=== PATIENT | male | born 1980 | race Caucasian/White ===

== ENCOUNTER 2017-09-19 23:01 | Emergency (ER) | payer SELFPAY ==
[~2017-09-19] VITALS: Ht 162.6 cm; Wt 53.3 kg
[2017-09-19 23:22] VITALS: BP 124/78
--- NOTE | 2017-09-20 00:16 | PHYS DOC ---
Adult General Chief Complaint Chief Complaint: HALLUCINATIONS AUDIBLE/VISUAL HPI HPI Patient is a 37 year old male who presents with complaint of paranoid thoughts and hallucinations. Patient has history of paranoid schizophrenia and bipolar disorder. Patient is currently stating at [facility] as he was recently incarcerated and released. Patient has been evaluated at the [facility] and was recommended to start on risperidone and gabapentin therapy. Patient has not been started on this medication as of yet but is supposed to go to the pharmacy to have this filled tomorrow. The patient denies any suicidal or homicidal ideation. The patient states he is having paranoid thoughts well at [facility] and states he does not trust anyone there. The patient states that he had been seeing blue dots in his left eye which caused him to punch himself in that eye at approximately 1500 today. Patient denies suicidal or homicidal ideation. The patient states that the emergency department feels like a safe place at this time and that he feels like he just needs to be "away for a little bit" so that he can calm down. Patient does not feel he needs to be admitted to a psychiatric facility. Review of Systems Review of Systems Constitutional: Denies fever or chills [] Eyes: Left eye redness and pain[] HENT: Denies nasal congestion or sore throat [] Respiratory: Denies cough or shortness of breath [] Cardiovascular: Denies chest pain or edema[] GI: Denies abdominal pain, nausea, vomiting, bloody stools or diarrhea [] : Denies dysuria or hematuria [] Musculoskeletal: Denies back pain or joint pain [] Integument: Denies rash or skin lesions [] Neurologic: Denies headache, focal weakness or sensory changes [] All other systems were reviewed and found to be within normal limits, except as documented in this note. Allergies Allergies Allergies Coded Allergies Type Severity Reaction Last Updated Verified Unable to Assess 09/20/17 No Physical Exam Physical Exam Constitutional: Alert, cooperative, afebrile, no acute distress. [] HENT: Normocephalic, atraumatic, bilateral external ears normal, oropharynx moist, no oral exudates, nose normal. [] Eyes: PERRLA, EOMI, left periorbital ecchymosis, left conjunctiva inflamed, left scleral injection, no discharge. [] Neck: Normal range of motion, no tenderness, supple, no stridor. [] Cardiovascular:Heart rate regular rhythm, no murmur [] Lungs & Thorax: Bilateral breath sounds clear to auscultation [] Abdomen: Bowel sounds normal, soft, no tenderness, no masses, no pulsatile masses. [] Skin: Warm, dry, no erythema, no rash. [] Back: No tenderness, no CVA tenderness. [] Extremities: No tenderness, no cyanosis, no clubbing, ROM intact, no edema. [] Neurologic: Alert and oriented X 3, normal motor function, normal sensory function, no focal deficits noted. [] Current Patient Data Vital Signs Vital Signs Date Time Temp Pulse Resp B/P (MAP) Pulse Ox O2 Delivery O2 Flow Rate FiO2 09/19/17 23:22 97.4 95 20 95 Room Air Lab Results Not performed EKG EKG Not performed[] Radiology/Procedures Radiology/Procedures Not performed[] Course & Med Decision Making Course & Med Decision Making Pertinent Labs and Imaging studies reviewed. (See chart for details) The patient remained cooperative in the emergency department. The patient was given a meal tray and was observed over 3 hours time. The patient is not suicidal or homicidal. The patient has been prescribed medications for treatment of schizophrenia including gabapentin and risperidone which he is supposed be able to have filled tomorrow. The patient was offered medication in the emergency department but declined. He stated that he felt safe in the emergency department and after observation the patient was willing to return back to the [facility]. Patient was given Romycin in the emergency department for treatment of conjunctivitis. Advised to continue on 5 day course and recommended return to emergency department for any worsening symptoms. Patient was understanding and agreement with treatment plan. Dragon Disclaimer Dragon Disclaimer This electronic medical record was generated, in whole or in part, using a voice recognition dictation system. Departure Departure: Impression: Primary Impression: Paranoid schizophrenia Additional Impression: Conjunctivitis Disposition: 01 HOME, SELF-CARE Condition: IMPROVED Referrals: PCP,RIZWAN (PCP) Patient Instructions: Schizophrenia Additional Instructions: Take your medications as prescribed by your psychiatrist. Return to the emergency department for any worsening symptoms. Problem Qualifiers Additional Impression: Conjunctivitis Conjunctivitis type: acute Acute conjunctivitis type: unspecified Laterality: left Qualified Codes: H10.32 - Unspecified acute conjunctivitis, left eye ALONSO MARIE MD Sep 20, 2017 00:16
[2017-09-20] MEDS ORDERED: ERYTHROMYCIN 0.5% OPHTH OINTMENT 1GM TUBE. OS ONE (00:30)
[2017-09-20] MEDS ORDERED: ERYT1OIN6 LEFTEYE (03:08)
== END 2017-09-20 02:46 | disposition home or self-care (01) ==
LOC: ER 23:01
DX: F20.0 Paranoid schizophrenia (principal); F31.9 Bipolar disorder, unspecified; H10.32 Unspecified acute conjunctivitis, left eye
CPT/HCPCS: 99284

== ENCOUNTER 2017-09-24 23:50 | Emergency (ER) | payer SELFPAY ==
[~2017-09-24] VITALS: Ht 162.6 cm; Wt 57.1 kg
[~2017-09-24 23:50] MED LIST: ERYT1OIN6 LEFTEYE
--- NOTE | 2017-09-25 00:04 | ED.ADGEN ---
Past History Past Medical History: Anxiety, Asthma, Bipolar, Depression, Schizophrenia, Other (CIRO VANCE MD) Past Surgical History: No Surgical History (CIRO VANCE MD) Smoking: Cigarettes Drug Use: Other (CIRO VANCE MD) Adult General Chief Complaint Chief Complaint ".. I having the hallucinations.. I am all really paranoid... but I am seeing stuff.... things I ve seen ... and done before... that I want to forget... I was here a week ago ... for similar shit... they asked me... if I wanted to take meds... and I said no... I don't want to be all....fog in my head.... but I started seeing arrows in my Lt. eye.. and visions in my Lt. eye... . so I started punching my self in the head... to make it stop...the CO ( executive officer ) was doing stuff to ... his phone... watch.... that was sending control signals ....to my head... and the snack machine is sending messages to my head....... I know.... I am paranoid.... I also have bad anxiety..... but... I am just out of ... [place]... I ve been down for ....10 yrs ... the max for gun possession... and 3 felony violent convictions.. ... It' s like man... I am in the Matrix... I ... don't under stand the world...." It just that... I keep getting the... hallucinations of ... violent shit... I ve seen... and done..."..." I was to take gabapentin and Risperdal... but I have not had it yet..... I don't like sedation ....from drugs.... only marijuana..."..." I am not going to fucking.. kill myself or hurt any one... I just don't want ... to be fucked with...." (ICRO VANCE MD) HPI HPI Patient is a 37 year old male who presents with above hx and complaints of confusion, hallucinations, paranoid delusions, anxiety, self injury and bouts of severe agitations. Pt. reports prior psych. admissions as child for suicide attempts and depression. Has taken meds for psychosis in past while in snf system. Prior Dx. of anxiety disorder, bipolar, schizophrenia, paranoid delusions. Pt. recently released to [facility]- at end of his 10 yr sentence. Pt. currently on gabapentin and Risperdal. Pt also using steroid cream for his eczema. Patient in just a short interview when from crying to pressured agitated speech and back again to sobbing. Pt. reportedly had + drug screen wednesday at [facility] and has become behavioral problem with staff . (CIRO VANCE MD) Review of Systems Review of Systems Complaints of Hallucinations and Delusions, Anxiety Constitutional: Denies fever or chills [] Eyes: Denies change in visual acuity, redness, or eye pain [] HENT: Denies nasal congestion or sore throat [] Respiratory: Denies cough or shortness of breath [] Cardiovascular: No additional information not addressed in HPI [] GI: Denies abdominal pain, nausea, vomiting, bloody stools or diarrhea [] : Denies dysuria or hematuria [] Musculoskeletal: Denies back pain or joint pain [] Integument: Denies rash or skin lesions [] Neurologic: Denies headache, focal weakness or sensory changes [] Endocrine: Denies polyuria or polydipsia [] All other systems were reviewed and found to be within normal limits, except as documented in this note. (CIRO VANCE MD) Family History Family History Noncontributory (CIRO VANCE MD) Current Medications Current Medications Current Medications Medications (Trade) Dose Ordered Sig/Nirmal Start Time Stop Time Status Last Admin Dose Admin Albuterol Sulfate (Ventolin Hfa) 2 puff 1X ONCE 09/25/17 06:30 09/25/17 06:31 DC 09/25/17 07:15 2 PUFF Folic Acid (FOLIC ACID SYRINGE for ER) 5 mg STK-MED ONCE 09/25/17 01:17 09/25/17 01:18 DC Gabapentin (Neurontin) 300 mg 1X ONCE 09/25/17 03:00 09/25/17 03:01 DC 09/25/17 07:29 300 MG Haloperidol Lactate (Haldol) 5 mg STK-MED ONCE 09/25/17 06:49 09/25/17 06:50 DC Lactated Ringer's 1,000 ml @ 1,000 mls/hr Q1H 09/25/17 00:27 09/25/17 01:26 DC 09/25/17 00:58 1,000 MLS/HR Lorazepam (Ativan) 2 mg STK-MED ONCE 09/25/17 06:49 09/25/17 06:50 DC Multivitamins/ Minerals 10 ml/ Folic Acid 1 mg/ Thiamine HCl 100 mg/Lactated Ringer's 1,011.1 ml @ 1,000 mls/ hr 1X ONCE 09/25/17 00:30 09/25/17 01:30 DC 09/25/17 01:35 1,000 MLS/HR Nicotine (Nicoderm Cq 21mg) 1 patch 1X ONCE 09/25/17 07:30 09/25/17 07:31 DC Risperidone (RisperDAL M) 2 mg 1X STAT 09/25/17 02:52 09/25/17 02:56 DC Risperidone (RisperDAL) 1 mg 1X ONCE 09/25/17 07:30 09/25/17 07:36 DC 09/25/17 07:30 1 MG Thiamine HCl (Thiamine Im) 200 mg STK-MED ONCE 09/25/17 01:17 09/25/17 01:18 DC Ziprasidone (Geodon) 60 mg 1X ONCE 09/25/17 07:30 09/25/17 07:31 DC (GINA TYSON MD) Current Medications See nursing for home meds (CIRO VANCE MD) Allergies Allergies Allergies Coded Allergies Type Severity Reaction Last Updated Verified Penicillins Allergy Unknown 09/25/17 Yes (GINA TYSON MD) Physical Exam Physical Exam Constitutional: Well developed, well nourished, in acute emotional distress, non-toxic appearance. [] HENT: Normocephalic, contusions to the left side of face, bilateral external ears normal, oropharynx moist, no oral exudates, nose normal. [] Eyes: PERRLA, EOMI, left sub-,conjunctiva hemorrhage,no discharge. [] Neck: Normal range of motion, no tenderness, supple, no stridor. [] Cardiovascular:Tachycardia Heart rate regular rhythm, no murmur [] Lungs & Thorax: Bilateral breath sounds equal at apex with scattered wheezes on auscultation [] Abdomen: Bowel sounds normal, soft, no tenderness, no masses, no pulsatile masses. [] Skin: Warm, dry, no erythema,. Tattoos from top head to feet. Eczema Back: No tenderness, no CVA tenderness. [] Extremities: No tenderness, no cyanosis, no clubbing, ROM intact, no edema. [] Neurologic: Alert and oriented X 3, normal motor function, normal sensory function, no focal deficits noted. [] Psychologic: Affect agitated, anxious, paranoid, judgement poor insight ,mood depressed at times crying. (CIRO VANCE MD) Current Patient Data Vital Signs Vital Signs Date Time Temp Pulse Resp B/P (MAP) Pulse Ox O2 Delivery O2 Flow Rate FiO2 09/25/17 07:59 98.6 109 16 133/83 (100) 98 09/25/17 01:35 Room Air (GINA TYSON MD) Lab Results Laboratory Tests Test 09/25/17 00:18 09/25/17 01:28 White Blood Count 8.8 x10^3/uL (4.0-11.0) Red Blood Count 4.61 x10^6/uL (4.30-5.70) Hemoglobin 14.0 g/dL (13.0-17.5) Hematocrit 41.6 % (39.0-53.0) Mean Corpuscular Volume 90 fL (79-100) Mean Corpuscular Hemoglobin 30 pg (25-35) Mean Corpuscular Hemoglobin Concent 34 g/dL (31-37) Red Cell Distribution Width 13.8 % (11.5-14.5) Platelet Count 316 x10^3/uL (140-400) Neutrophils (%) (Auto) 52 % (31-73) Lymphocytes (%) (Auto) 27 % (24-48) Monocytes (%) (Auto) 7 % (0-9) Eosinophils (%) (Auto) 12 % (0-3) H Basophils (%) (Auto) 2 % (0-3) Neutrophils # (Auto) 4.6 x10^3uL (1.8-7.7) Lymphocytes # (Auto) 2.4 x10^3/uL (1.0-4.8) Monocytes # (Auto) 0.6 x10^3/uL (0.0-1.1) Eosinophils # (Auto) 1.0 x10^3/uL (0.0-0.7) H Basophils # (Auto) 0.2 x10^3/uL (0.0-0.2) Sodium Level 141 mmol/L (136-145) Potassium Level 3.7 mmol/L (3.5-5.1) Chloride Level 103 mmol/L (98-107) Carbon Dioxide Level 29 mmol/L (21-32) Anion Gap 9 (6-14) Blood Urea Nitrogen 8 mg/dL (8-26) Creatinine 0.9 mg/dL (0.7-1.3) Estimated GFR (Cockcroft-Gault) 96.0 Glucose Level 109 mg/dL (70-99) H Calcium Level 8.2 mg/dL (8.5-10.1) L Magnesium Level 2.2 mg/dL (1.8-2.4) Total Bilirubin 0.1 mg/dL (0.2-1.0) L Direct Bilirubin 0.1 mg/dL (0.0-0.2) Aspartate Amino Transferase (AST) 18 U/L (15-37) Alanine Aminotransferase (ALT) 38 U/L (16-63) Alkaline Phosphatase 92 U/L (46-116) Total Protein 7.0 g/dL (6.4-8.2) Albumin 3.4 g/dL (3.4-5.0) Thyroid Stimulating Hormone (TSH) 0.860 uIU/mL (0.358-3.740) Ethyl Alcohol Level < 10 mg/dL (0-10) Urine Collection Type Unknown Urine Color Straw Urine Clarity Clear Urine pH 6.0 Urine Specific [place] 1.010 Urine Protein Neg (NEG-TRACE) Urine Glucose (UA) Neg mg/dL (NEG) Urine Ketones (Stick) Neg mg/dL (NEG) Urine Blood Neg (NEG) Urine Nitrite Neg (NEG) Urine Bilirubin Neg (NEG) Urine Urobilinogen Dipstick 0.2 mg/dL (0.2 mg/dL) Urine Leukocyte Esterase Neg (NEG) Urine RBC Rare /HPF (0-2) Urine WBC Rare /HPF (0-4) Urine Squamous Epithelial Cells None /LPF Urine Bacteria 0 /HPF (0-FEW) Urine Opiates Screen Neg (NEG) Urine Methadone Screen Neg (NEG) Urine Barbiturates Neg (NEG) Urine Phencyclidine Screen Neg (NEG) Urine Amphetamine/Methamphetamine Neg (NEG) Urine Benzodiazepines Screen Neg (NEG) Urine Cocaine Screen Neg (NEG) Urine Cannabinoids Screen Neg (NEG) Urine Ethyl Alcohol Neg (NEG) (GINA TYSON MD) Lab Results Laboratory Tests Test 09/25/17 00:18 09/25/17 01:28 White Blood Count 8.8 x10^3/uL (4.0-11.0) Red Blood Count 4.61 x10^6/uL (4.30-5.70) Hemoglobin 14.0 g/dL (13.0-17.5) Hematocrit 41.6 % (39.0-53.0) Mean Corpuscular Volume 90 fL (79-100) Mean Corpuscular Hemoglobin 30 pg (25-35) Mean Corpuscular Hemoglobin Concent 34 g/dL (31-37) Red Cell Distribution Width 13.8 % (11.5-14.5) Platelet Count 316 x10^3/uL (140-400) Neutrophils (%) (Auto) 52 % (31-73) Lymphocytes (%) (Auto) 27 % (24-48) Monocytes (%) (Auto) 7 % (0-9) Eosinophils (%) (Auto) 12 % (0-3) H Basophils (%) (Auto) 2 % (0-3) Neutrophils # (Auto) 4.6 x10^3uL (1.8-7.7) Lymphocytes # (Auto) 2.4 x10^3/uL (1.0-4.8) Monocytes # (Auto) 0.6 x10^3/uL (0.0-1.1) Eosinophils # (Auto) 1.0 x10^3/uL (0.0-0.7) H Basophils # (Auto) 0.2 x10^3/uL (0.0-0.2) Sodium Level 141 mmol/L (136-145) Potassium Level 3.7 mmol/L (3.5-5.1) Chloride Level 103 mmol/L (98-107) Carbon Dioxide Level 29 mmol/L (21-32) Anion Gap 9 (6-14) Blood Urea Nitrogen 8 mg/dL (8-26) Creatinine 0.9 mg/dL (0.7-1.3) Estimated GFR (Cockcroft-Gault) 96.0 Glucose Level 109 mg/dL (70-99) H Calcium Level 8.2 mg/dL (8.5-10.1) L Magnesium Level 2.2 mg/dL (1.8-2.4) Total Bilirubin 0.1 mg/dL (0.2-1.0) L Direct Bilirubin 0.1 mg/dL (0.0-0.2) Aspartate Amino Transferase (AST) 18 U/L (15-37) Alanine Aminotransferase (ALT) 38 U/L (16-63) Alkaline Phosphatase 92 U/L (46-116) Total Protein 7.0 g/dL (6.4-8.2) Albumin 3.4 g/dL (3.4-5.0) Thyroid Stimulating Hormone (TSH) 0.860 uIU/mL (0.358-3.740) Ethyl Alcohol Level < 10 mg/dL (0-10) Urine Collection Type Unknown Urine Color Straw Urine Clarity Clear Urine pH 6.0 Urine Specific [place] 1.010 Urine Protein Neg (NEG-TRACE) Urine Glucose (UA) Neg mg/dL (NEG) Urine Ketones (Stick) Neg mg/dL (NEG) Urine Blood Neg (NEG) Urine Nitrite Neg (NEG) Urine Bilirubin Neg (NEG) Urine Urobilinogen Dipstick 0.2 mg/dL (0.2 mg/dL) Urine Leukocyte Esterase Neg (NEG) Urine RBC Rare /HPF (0-2) Urine WBC Rare /HPF (0-4) Urine Squamous Epithelial Cells None /LPF Urine Bacteria 0 /HPF (0-FEW) Urine Opiates Screen Neg (NEG) Urine Methadone Screen Neg (NEG) Urine Barbiturates Neg (NEG) Urine Phencyclidine Screen Neg (NEG) Urine Amphetamine/Methamphetamine Neg (NEG) Urine Benzodiazepines Screen Neg (NEG) Urine Cocaine Screen Neg (NEG) Urine Cannabinoids Screen Neg (NEG) Urine Ethyl Alcohol Neg (NEG) (CIRO VANCE MD) EKG EKG I interpretation of EKG shows a sinus rhythm at 91 bpm. No acute cardiopulmonary changes. No findings acute STEMI of contralateral changes.[] (CIRO VANCE MD) Radiology/Procedures Radiology/Procedures My interpretation of chest x-ray shows no cardiopulmonary findings My interpretation of CT head shows no acute shift, mass, edema, bleed, or fracture.[] (CIRO VANCE MD) Course & Med Decision Making Course & Med Decision Making Pertinent Labs and Imaging studies reviewed. (See chart for details) [facility] by [facility]- via computer. Recommendation for in hospital psych . tx. and evaluation. [facility] attempting placement. Pt. currently refusing medications. Did accept IV fluids. Denies suicidal or homicidal ideations. Pt. resting, got up to go to bathroom. 0200 Pt. resting comfortable- 0300 Pt. sleeping - 0400 Pt. watching TV- 0500, Still awaiting [facility] placement. Pt. now requesting different nurses to take care of him, states he dose not want any " Sneaky ass nurses" 0600 . Check out to shift change Dr. Tyson - he will make final disposition. Pt. still here on my return for next shift. Pt. awaiting placement at [facility]. Pt. currently resting and occasionally watching TV. - 1800 Shift change Pt. still in room comfortable- occasionally sleeping 1900 to 2300 Pt. becoming more agitated again. 2330. Hrs. [facility] advised they will not consider accepting pt again until 0500 Am. [facility] advised that he has been removed from the count. Call placed to Director- Mr. Martinez [phone]. Advised he was not under their custody any more. Call placed to Tarun Burton [phone], pt. reported information assurance officer. No call back as of 0500. Pt. checked out at shift change- awaiting placement at [facility]. [] (CIRO VANCE MD) Course & Med Decision Making ARNIE S/O FROM [facility] 6 AM AWAITING PSYCH PLACEMENT. 630 AM PT BECAME QUITE AGITATED THREATENING TO STAFF, CLENCHING FISTS POINTING AT SPECIFIC MEMBERS OF STAFF SUCH MYSELF. POLICE WERE CONTACTED DUE TO CONCERN THAT WE STAFF WOULD NOT HAVE CAPACITY TO TAKEDOWN OR SEDATE THIS PATIENT SAFELY. PT DID ULTIMATELY AGREE TO GET INTO THE [facility]OPSITAL PANTS AND COMPLY WITH THE SUICIDE PRECAUTIONS. HE SLEPT THROUGHOUT THE REMAINDER OF THE SHIFT OF THIS WRITING AT 330 PM. I CHECKED ON HIM MULTIPLE TIMES AND HE WAS RESTING COMFORTABLY. HE IS NUMBER [phone] ON THE L[facility] AT [facility]. (GINA TYSON MD) Final Impression Final Impression 1. Delusions 2. Paranoid 3. Anxiety 4. Agitation 5. Tobacco Use/ Hx. Polysubstance Abuse 6. Self Injury[] 7. Hx. Bipolar 8. Hx. of Schizophrenia 9. Acute Psychosis / on Chronic 10.Suicidal and homicidal ideations 11. Eczema 12. Asthma (CIRO VANCE MD) Dragon Disclaimer Dragon Disclaimer This electronic medical record was generated, in whole or in part, using a voice recognition dictation system. (CIRO VANCE MD) CIRO VANCE MD Sep 25, 2017 00:04 GINA TYSON MD Sep 25, 2017 15:33
[2017-09-25] MEDS ORDERED: IV RINGERS SOLUTION,LACTATED 1,000 ML IV SCH (00:27)
[2017-09-25] MEDS ORDERED: MVI, ADULT NO.4 WITH VIT K 10 ML, FOLIC ACID SYRINGE for ER 1 MG, THIAMINE 100 MG in IV... IV ONE ×4 (00:30)
[2017-09-25 00:56] LABS: ALBUMIN 3.4 g/dL (3.4-5.0); CALCIUM 8.2 mg/dL (8.5-10.1); CREATININE 0.9 mg/dL (0.7-1.3); DIRECT BILIRUBIN 0.1 mg/dL (0.0-0.2); MAGNESIUM 2.2 mg/dL (1.8-2.4); POTASSIUM 3.7 mmol/L (3.5-5.1); TOTAL BILIRUBIN 0.1 mg/dL (0.2-1.0)
[2017-09-25] MEDS ORDERED: THIAMINE IM 200 MG/2 ML VIAL. IM ONE (01:17)
[2017-09-25] MEDS ORDERED: FOLIC ACID 5 MG/ML SYRINGE for ER IV ONE (01:17)
--- NOTE | 2017-09-25 01:25 | RAD ---
Indication: Hallucination mid self-imposed trauma. TECHNIQUE: CT head without IV contrast COMPARISON: None FINDINGS: No pathologic extra-axial or intra-axial fluid collection. The ventricles and basal cisterns are within normal limits. No acute intracranial bleed. The plascencia-white differentiation is preserved. Visualized orbits within normal limits. No calvarial fractures. Visualized paranasal sinuses and mastoid air cells are clear. IMPRESSION: No acute intracranial process on this noncontrast CT. Electronically signed by: Matthew Melo DO (09/25/2017 1:22 AM) [facility]
[2017-09-25 01:48] LABS: BASO # 0.2 x10^3/uL (0.0-0.2); BASO % 2 % (0-3); EOS % 12 % (0-3); HEMATOCRIT 41.6 % (39.0-53.0); LYMPH # 2.4 x10^3/uL (1.0-4.8); LYMPH % 27 % (24-48); MEAN CORPUSCULAR HEMOGLOBIN 30 pg (25-35); MEAN CORPUSCULAR HGB CONC 34 g/dL (31-37); MEAN CORPUSCULAR VOLUME 90 fL (79-100); MONO # 0.6 x10^3/uL (0.0-1.1); MONO % 7 % (0-9); NEUT # 4.6 x10^3uL (1.8-7.7); NEUT % 52 % (31-73); PLATELET COUNT 316 x10^3/uL (140-400); RED BLOOD COUNT 4.61 x10^6/uL (4.30-5.70); RED CELL DISTRIBUTION WIDTH 13.8 % (11.5-14.5); WHITE BLOOD COUNT 8.8 x10^3/uL (4.0-11.0)
[2017-09-25 01:48] LABS: BARBITURATES NEG (NEG); BENZODIAZEPINES NEG (NEG); CANNABINOIDS NEG (NEG); COCAINE NEG (NEG); METHADONE NEG (NEG); OPIATES NEG (NEG); PHENCYCLIDINE NEG (NEG)
[2017-09-25 01:50] LABS: BACTERIA,URINE 0 /HPF (0-FEW); BILIRUBIN,URINE NEG (NEG); CLARITY,URINE CLEAR; COLOR,URINE STRAW; GLUCOSE,URINE NEG (NEG); NITRITE,URINE NEG (NEG); RBC,URINE RARE /HPF (0-2); UROBILINOGEN,URINE 0.2 mg/dL (0.2 mg/dL)
[2017-09-25 01:51] LABS: WBC,URINE RARE /HPF (0-4)
[2017-09-25 01:57] LABS: AMPHETAMINE/METHAMPHETAMINE NEG (NEG)
[2017-09-25] MEDS ORDERED: risperiDONE ODT 1 MG TAB.RAPDIS. PO STA ×2 (02:52→23:35)
[2017-09-25] MEDS ORDERED: GABAPENTIN 100 MG CAPSULE. PO ONE ×2 (03:00→23:45)
--- NOTE | 2017-09-25 03:02 | RAD ---
PROCEDURE: CHEST AP ONLY CLINICAL INDICATION: Cough. Hx asthma COMPARISON: None FINDINGS: No pneumothorax identified. Cardiac and mediastinal contours unremarkable. No pulmonary consolidation or acute airspace disease. No acute osseous abnormalities identified. IMPRESSION: No pulmonary consolidation or acute airspace disease. Electronically signed by: Matthew Mleo DO (09/25/2017 2:58 AM) [id number]
[2017-09-25] MEDS ORDERED: risperiDONE 1 MG TABLET. ONE (03:13)
[2017-09-25] MEDS ORDERED: RISP0.5T3 PO (05:55)
[2017-09-25] MEDS ORDERED: GABA-586 PO (05:55)
[2017-09-25] MEDS ORDERED: ALBUTEROL SULFATE 8GM INHALER. INH ONE (06:30)
[2017-09-25] MEDS ORDERED: HALOPERIDOL LACT 5 MG/ML VIAL. ONE (06:49)
[2017-09-25] MEDS ORDERED: LORazepam 2 MG/ML VIAL ONE (06:49)
[2017-09-25] MEDS ORDERED: LORazepam 2 MG/ML VIAL IM ONE (07:00)
[2017-09-25] MEDS ORDERED: HALOPERIDOL LACT 5 MG/ML VIAL. IM ONE (07:00)
[2017-09-25] MEDS ORDERED: ZIPRASIDONE 60 MG CAPSULE. PO ONE (07:30)
[2017-09-25] MEDS ORDERED: risperiDONE 0.25 MG TABLET. PO ONE (07:30)
[2017-09-25] MEDS ORDERED: NICOTINE 21MG PATCH. TD ONE (07:30)
[2017-09-26] MEDS ORDERED: TRIAMCINOLONE ACETONIDE 0.025% TP SCH (09:00)
[2017-09-26 11:32] VITALS: BP 139/66
== END 2017-09-26 11:57 | disposition short-term general hospital (02) ==
LOC: ER 23:50 → EEVIPCON 23:50 → ER 09-26 11:57
DX: F20.0 Paranoid schizophrenia (principal); F41.9 Anxiety disorder, unspecified; F17.210 Nicotine dependence, cigarettes, uncomplicated; F31.9 Bipolar disorder, unspecified; F20.9 Schizophrenia, unspecified; S00.83XA Contusion of other part of head, initial encounter; L30.9 Dermatitis, unspecified; J45.909 Unspecified asthma, uncomplicated; X83.8XXA Intentional self-harm by other specified means, initial encounter; Y93.89 Activity, other specified; Y99.8 Other external cause status; Y92.89 Other specified places as the place of occurrence of the external cause
CPT/HCPCS: 36415; 80048; 80076; 80307; 81001; 83735; 84443; 85025; 94640; 96361; 96365; 99285; G0480; J7120; J7613; G0479